=== PATIENT | female | born 1980 | race Caucasian/White ===

== ENCOUNTER 2021-07-26 21:10 | Emergency (ER) | payer OTHER ==
[~2021-07-26] VITALS: Ht 154.9 cm; Wt 47.2 kg
[2021-07-26] MEDS ORDERED: PROG100C15 PO (21:33)
--- NOTE | 2021-07-26 21:49 | NUR ---
Nino GILLILAND DR. FOR PELVIC EXAM.
[2021-07-26 21:53] LABS: HEMATOCRIT 37.3 % (31.2-41.9); MEAN CORPUSCULAR HEMOGLOBIN 28.6 uug (24.7-32.8); MEAN CORPUSCULAR VOLUME 84.6 fL (75.5-95.3); PLATELET COUNT (AUTO) 279 K/uL (179-408)
[2021-07-26 22:14] LABS: CARBON DIOXIDE 27 mmol/L (21-32); CHLORIDE 102 mmol/L (98-107); CREATININE 0.5 mg/dL (0.6-1.3); GLUCOSE 75 mg/dL (74-106); POTASSIUM 3.5 mmol/L (3.5-5.1); UREA NITROGEN, BLOOD 12 mg/dL (7-18)
[2021-07-26 22:19] LABS: ALANINE AMINOTRANSFERASE 26 U/L (14-59); ALKALINE PHOSPHATASE 29 U/L (50-136); ASPARTATE AMINOTRANSFERASE 19 U/L (15-37); BILIRUBIN,DIRECT < 0.1 mg/dL (0.0-0.2); BILIRUBIN,TOTAL 0.2 mg/dL (0.2-1.0)
--- NOTE | 2021-07-26 23:35 | NUR ---
Patient discharged to home in stable condition. Written and verbal after care instructions given. Patient verbalizes understanding of instructions. Stressed follow up or return to ER for worsening s/s.
[2021-07-26 23:38] VITALS: BP 130/72
== END 2021-07-26 23:38 | disposition home or self-care (01) ==
LOC: ER 21:15
DX: O20.0 Threatened abortion (principal); Z3A.08 8 weeks gestation of pregnancy; O09.521 Supervision of elderly multigravida, first trimester
CPT/HCPCS: 36415; 76856; 85025; 85730; 86850; 86900; 86901; A4663